=== PATIENT | female | born 1990 | race Caucasian/White ===

== ENCOUNTER 2020-11-01 17:25 | Emergency (ER) | payer OTHER ==
[2020-11-01 18:10] LABS: BASOPHIL 0.5 % (0-2); EOSINOPHIL 0.4 % (0-5); HCT 40.8 % (37.0-47.0); HGB 13.6 g/dl (12.5-16.0); LYMPHOCYTE 20.4 % (15-48); MCH 26.1 pg (25.0-31.0); MCHC 33.3 g/dL (32.0-36.0); MCV 78.3 fL (78.0-100.0); MONOCYTE 10.3 % (0-12); MPV 10.2 fL (6.0-9.5); NEUTROPHIL 68.1 % (41-80); NRBC 0; PLT 246 K/uL (150-400); RBC 5.21 M/uL (4.20-5.40); RDW 14.5 % (11.5-14.0); WBC 9.3 K/uL (4.0-10.5)
[2020-11-01 18:14] LABS: AMPHETAMINES NEGATIVE (NEGATIVE); BARBITURATES NEGATIVE (NEGATIVE); ECSTASY (MDMA) NEGATIVE (NEGATIVE); MARIJUANA (THC) NEGATIVE (NEGATIVE); METHADONE NEGATIVE (NEGATIVE); OPIATES NEGATIVE (NEGATIVE); OXYCODONE NEGATIVE (NEGATIVE)
[2020-11-01 18:15] LABS: BILIRUBIN NEGATIVE (NEGATIVE); BLOOD NEGATIVE Ery/uL (NEGATIVE); CLARITY CLEAR (CLEAR); COLOR YELLOW (YELLOW); GLUCOSE (U) NORMAL (NORMAL); LEUKOCYTES TRACE Leu/uL (NEGATIVE); NITRITE NEGATIVE (NEGATIVE); PROTEIN NEGATIVE (NEGATIVE); UROBILINOGEN 0.2 mg/dL (0.2-1.0)
[2020-11-01 18:30] LABS: ALBUMIN 4.1 g/dL (3.4-5.0); ALKALINE PHOSHATASE 91 U/L (46-116); ALT 24 U/L (14-59); AST 15 U/L (15-37); BILIRUBIN - TOTAL 0.9 mg/dL (0.2-1.0); BUN 12 mg/dL (7-18); CHLORIDE 102 mmol/L (98-107); CO2 (BICARBONATE) 23 mmol/L (21-32); CREATININE 0.83 mg/dL (0.51-0.95); GLOBULIN (CALCULATION) 5.1 g/dL; GLUCOSE 108 mg/dL (74-106); POTASSIUM 3.6 mmol/L (3.5-5.1); TOTAL PROTEIN 9.2 g/dL (6.4-8.2)
[2020-11-01 18:38] LABS: BACTERIA TRACE
[2020-11-01 18:39] LABS: MUCOUS TRACE
== END 2020-11-01 19:10 | disposition home or self-care (01) ==
LOC: FER 17:25
PROVIDERS: Emergency Medicine
DX: R55 Syncope and collapse (principal); R06.4 Hyperventilation; R00.0 Tachycardia, unspecified
CPT/HCPCS: 36415; 71045; 80053; 80305; 81001; 84484; 85025; 87088; 93005; 96372; G0480; J1885; J2060; J7030